=== PATIENT | male | born 1975 | race African-American/Black ===

== ENCOUNTER 2019-06-22 14:47 | Emergency (ER) | payer BC, OTHER ==
[~2019-06-22] VITALS: Ht 175.3 cm; Wt 73.0 kg
[2019-06-22 16:10] VITALS: BP 140/83
== END 2019-06-22 18:14 | disposition left against medical advice (07) ==
LOC: ER 14:47
DX: Z53.21 Procedure and treatment not carried out due to patient leaving prior to being seen by health care provider (principal)